=== PATIENT | female | born 1970 | race Caucasian/White ===

== ENCOUNTER 2019-07-16 07:37 | Inpatient (IN) | payer OTHER ==
[~2019-07-16] VITALS: Ht 165.1 cm; Wt 103.4 kg
[2019-07-16] VITALS (33 sets, daily range): BP systolic 102–199; BP diastolic 56–90
--- NOTE | ~2019-07-16 | EMS ---
[place] [address] EMS Patient Care Report Name: MALATHI GERARDO Room: [place] [address] ADM IN [facility]#: [id number] Admission: 07/16/19 Attend Phys: Bon Lozano MD, F Discharge: Date of : 70 Report #: [id number] THIS REPORT FOR: //name// Report Transmitted: 07/16/2019 07:58 EMS Care Summary [facility] [id number] @ 07/16/2019 06:41 Incident Location [address] [place] [address] Patient MALATHI GERARDO Female, 49 Years 1970 Patient Address [address] [place] [address] Patient History Denies, Patient Allergies Penicillin, Patient Medications Denies, Chief Complaint Chest/Neck Pain Disposition Transported Lights/[place] Reason Chest Pain Transported To [facility] Narrative Dispatched: Med 1 was toned for a female who was experiencing chest pain. Chief Complaint/Condition: The pt was found sitting on her couch grabbing her chest with apparent discomfort/distress. She was talking with Officer 405. She [facility] [address] [place] [address] EMS Patient Care Report Name: MALATHI GERARDO Room: 160[address]1 ADM IN [place]enny#: [id number] Admission: 07/16/19 Attend Phys: Bon Lozano MD, F Discharge: Date of : 70 Report #: [id number] complained of chest pain that radiated into her left arm and anterior neck. Pain rated 8:10. History of Present Illness/Injury: The pt stated that she had an onset of chest pain and discomfort yesterday evening that had dissipated. Approximately 6 hours prior to 911 activation, she reported the chest pain returned and stayed consistent. She took ibuprofen with no relief. Pain did not change with movement. The pain increased and she had 911 called when her condition did not improve. Besides nausea, the pt had no other complaints. Assessment: The pt was a female in her 40's, A/Ox4, GCS 15. Airway patent, breathing rate increased and shallow. CMS present with strong radial pulses. Skin pale, cool, and dry. STEMI noted in inferior leads. See section for further. Reason for Ambulance: The pt was experiencing a possible STEMI with symptoms. Pt transported to cardiac center ([place]) per her choice. Treatments: EKG/ 12 lead showing inferior elevation with borderline ST depression in high lateral leads and T wave inversion (septal/anterior) beginning later in the call. 15 lead attempted but unable to fully read due to artifact. Oxygen and aspirin administered per protocol. Fluid bolus given due to lowering blood pressure post narcotics. Fentanyl administered for pain. Zofran administered for nausea. See section for further. Summary: Med 1 arrived on scene to find the pt speaking with Officer 405. Assessment performed, treatments initiated (Aspirin). Possible STEMI noted. Pt escorted to the stretcher and secured/brought to Med 1. Transport initiated immediately (emergent). Further treatments performed en route while history of the event was gathered. Serial 12 leads and 15 leads performed. Report called into [place] with findings/STEMI activation. No further orders given. Upon arrival, Med 1 was met by physician and RN in ambulance bay. Report given with copy of EKG. The pt was brought to room 1 and sheet transferred to bed. Report was given to staff and signatures obtained. The pt's purse was left in the room. Med 1 gathered paperwork, performed clean up of unit, and returned to [facility]. Initial Vitals @07:14Glucose: 322, @06:51P: 60,BP: 190/90,SpO2: 98, @06:5712-Lead Ischemia:Inferior,3-Lead ECG: Sinus Rhythm3-Lead Additional: 5444MI Suspected: true @06:56GCS: 15,3-Lead ECG: Sinus Rhythm3-Lead Additional: 5444 @07:02GCS: 15,3-Lead ECG: Sinus Rhythm3-Lead Additional: 5444MI Suspected: true @06:55GCS: 15,12-Lead Ischemia:Inferior,3-Lead ECG: Sinus Rhythm3-Lead Additional: 5444MI Suspected: [place] [address] EMS Patient Care Report Name: MALATHI GERARDO Room: [place] [address] ADM IN ..#: [id number] Admission: 07/16/19 Attend Phys: Bon Lozano MD, F Discharge: Date of : 70 Report #: [id number] @07:03P: 68,R: 28,BP: 125/102,Pain: 8/10,GCS: 15,SpO2: 100,Revised Trauma: 12,12-Lead Ischemia:Inferior,3-Lead ECG: Sinus Rhythm3-Lead Additional: 5444MI Suspected: true @07:09P: 69,R: 28,GCS: 15,SpO2: 100,3-Lead ECG: Sinus Rhythm3-Lead Additional: 5444 @07:27P: 65,R: 26,BP: 71/47,GCS: 15,EtCO2: 11,SpO2: 100,Revised Trauma: 10,3-Lead ECG: Sinus Rhythm3-Lead Additional: 5444 @07:15P: 65,R: 30,BP: 122/98,Pain: 8/10,GCS: 15,EtCO2: 10,SpO2: 100,Revised Trauma: 11,3-Lead ECG: Sinus Rhythm3-Lead Additional: 5444 @07:35R: 30,GCS: 15,EtCO2: 14,SpO2: 100,12-Lead Ischemia:Inferior,3-Lead ECG: Sinus RhythmMI Suspected: true Assessments @06:49MENTAL:Time Oriented,Person Oriented,Place Oriented,Event Oriented,SKIN:Cold,Pale,HEENT:LUNG SOUNDS:General: Nausea,ABDOMEN:General: Nausea,PELVIS//GI:EXTREMITIES:Left Arm: Abnormal Sensation,PULSE:Radial: 2+ Normal,NEURO:@07:30MENTAL:Time Oriented,Person Oriented,Event Oriented,Place Oriented,SKIN:Pale,Cold,HEENT:LUNG SOUNDS:ABDOMEN:PELVIS//GI:EXTREMITIES:Left Arm: Abnormal Sensation,PULSE:Radial: 2+ Normal,NEURO: Impression Chest Pain / Discomfort Procedures @06:51Aspirin - 324 mg - OralResponse: Unchanged@07:13Saline Lock 10cc (18 ga) Site: Antecubital-LeftResponse: UnchangedSucceeded@07:25Fentanyl - 50 mcg - IntravenousResponse: Improved@07:22Zofran - 4 mg - IntravenousResponse: Unchanged@07:20Oxygen FlowRate: 2 Device: CO2 Nasal Cannula Response: ImprovedSucceeded@07:0912-Lead ECGResponse: UnchangedSucceeded@07:0212-Lead ECGResponse: UnchangedSucceeded@07:0312-Lead ECGResponse: UnchangedSucceeded@06:5512-Lead ECGResponse: UnchangedSucceeded@06:5712-Lead ECGResponse: UnchangedSucceeded@06:5612-Lead ECGResponse: UnchangedSucceeded@07:1515-Lead ECGResponse: UnchangedSucceeded@07:3515-Lead ECGResponse: UnchangedSucceeded@07:33Fentanyl - 50 mcg - IntravenousResponse: Improved@06:49ALS AssessmentResponse: UnchangedSucceeded@07:26Lactated Ringers 300cc () Site: Antecubital-LeftResponse: ImprovedSucceeded Timeline 06:40,Call Received 06:40,Psap Call 06:41,Dispatched 06:43,En Route 06:48,On Scene 06:49,At Patient 06:49,ALS Assessment,Response: UnchangedSucceeded, 06:51,BP: 190/90 M,PULSE: 60,RR: R,SPO2: 98 Ox,ETCO2: ,BG: ,PAIN: ,GCS: , [facility] [address] [place] [address] EMS Patient Care Report Name: MALATHI GERARDO Room: [place] [address] ADM IN M.R.#: [id number] Admission: 07/16/19 Attend Phys: Bon Lozano MD, F Discharge: Date of : 70 Report #: [id number] 06:51,Aspirin - 324 mg - Oral,Response: Unchanged 06:55,12-Lead ECG,Response: UnchangedSucceeded, 06:55,BP: / M,PULSE: ,RR: R,SPO2: Ox,ETCO2: ,BG: ,PAIN: ,GCS: 15, 06:56,12-Lead ECG,Response: UnchangedSucceeded, 06:56,BP: / M,PULSE: ,RR: R,SPO2: Ox,ETCO2: ,BG: ,PAIN: ,GCS: 15, 06:57,12-Lead ECG,Response: UnchangedSucceeded, 06:57,BP: / M,PULSE: ,RR: R,SPO2: Ox,ETCO2: ,BG: ,PAIN: ,GCS: , 07:02,12-Lead ECG,Response: UnchangedSucceeded, 07:02,BP: / M,PULSE: ,RR: R,SPO2: Ox,ETCO2: ,BG: ,PAIN: ,GCS: 15, 07:03,12-Lead ECG,Response: UnchangedSucceeded, 07:03,BP: 125/102 M,PULSE: 68,RR: 28 R,SPO2: 100 Ox,ETCO2: ,BG: ,PAIN: 8,GCS: 15, 07:04,Depart Scene 07:09,12-Lead ECG,Response: UnchangedSucceeded, 07:09,BP: / M,PULSE: 69,RR: 28 R,SPO2: 100 Ox,ETCO2: ,BG: ,PAIN: ,GCS: 15, 07:13,Saline Lock 10cc 18 ga Site: Antecubital-Left,Response: UnchangedSucceeded, 07:14,BP: / M,PULSE: ,RR: R,SPO2: Ox,ETCO2: ,B,PAIN: ,GCS: , 07:15,BP: 122/98 M,PULSE: 65,RR: 30 R,SPO2: 100 Ox,ETCO2: 10 ,BG: ,PAIN: 8,GCS: 15, 07:15,15-Lead ECG,Response: UnchangedSucceeded, 07:20,Oxygen FlowRate: 2 Device: CO2 Nasal Cannula Response: ImprovedSucceeded, 07:22,Zofran - 4 mg - Intravenous,Response: Unchanged 07:25,Fentanyl - 50 mcg - Intravenous,Response: Improved 07:26,Lactated Ringers 300cc Site: Antecubital-Left,Response: ImprovedSucceeded, 07:27,BP: 71/47 M,PULSE: 65,RR: 26 R,SPO2: 100 Ox,ETCO2: 11 ,BG: ,PAIN: ,GCS: 15, 07:33,Fentanyl - 50 mcg - Intravenous,Response: Improved 07:34,At Destination 07:35,BP: / M,PULSE: ,RR: 30 R,SPO2: 100 Ox,ETCO2: 14 ,BG: ,PAIN: ,GCS: 15, 07:35,15-Lead ECG,Response: UnchangedSucceeded, 08:17,Call Closed Disclaimer v1.1 Copyright 2019 [employer] This EMS Care Summary contains data elements from the applicable legal record (which may be displayed differently). It is designed to provide pertinent information for the following purposes: continuity of care, clinical quality, and state data reporting. The complete legal record is available to ED staff and administrators of the receiving hospital in [employer]'s Patient Tracker. All data is provided "as is."
[2019-07-16 08:05] LABS: ABSOLUTE BASOPHILS 0.2 thou/uL (0.0-0.2); ABSOLUTE EOSINOPHILS 0.3 thou/uL (0.0-0.7); ABSOLUTE LYMPHOCYTES 3.2 thou/uL (0.8-5.3); ABSOLUTE MONOCYTES 0.7 thou/uL (0.0-1.2); ABSOLUTE NEUTROPHILS 9.1 thou/uL (1.6-8.1); BASOPHILS 1.1 %; EOSINOPHILS 2.2 %; HEMATOCRIT 41.4 % (37.0-47.0); HEMOGLOBIN 14.3 gm/dL (12.0-15.0); LYMPHOCYTES 23.7 %; MCH 29.8 pg (26.0-34.0); MCHC 34.5 g/dL (28.0-37.0); MCV 86.5 fL (80.0-100.0); MONOCYTES 5.1 %; MPV 9.6 fl. (7.2-11.1); NUCLEATED RBCS 0 /100WBC; PLATELET COUNT* 277 thou/uL (150-400); POLYS 67.9 %; RBC 4.78 mil/uL (4.20-5.00); RDW-CV 13.6 % (10.5-14.5); WBC 13.5 thou/uL (4.0-11.0)
[2019-07-16 08:13] LABS: CALCIUM 9.7 mg/dL (8.5-10.1); CREATININE 0.7 mg/dL (0.6-1.3); INR 0.9; POTASSIUM 3.6 mmol/L (3.5-5.1); PROTIME 9.6 Seconds (9.20-11.50)
[2019-07-16 08:23] LABS: ALBUMIN 3.1 g/dL (3.4-5.0); TOTAL BILIRUBIN 0.3 mg/dL (<0.1-1.0); TOTAL PROTEIN 6.7 g/dL (6.4-8.2); TROPONIN-I LEVEL 0.18 ng/mL (<0.06)
--- NOTE | 2019-07-16 13:52 | CON ---
[address] [address] CONSULTATION Name: HUMAIRAMALATHI Room: [address] IN M.R.#: [id number] Admission: 07/16/19 Attend Phys: Rizwan Viveros Discharge: Date of : 70 Report #: [id number] THIS REPORT FOR: //name// CC: Bon Becerril DATE OF SERVICE: 07/16/2019 INDICATION: Acute inferior wall ST elevation myocardial infarction. HISTORY OF PRESENT ILLNESS: The patient is a 49-year-old white female with no prior cardiac history. She is on no medications. She has no allergies. For the past 2 days, she has had progressive midsternal chest discomfort. This morning approximately 2 a.m., the pain persisted, radiating to the back of the left arm and the throat area. She had associated nausea, vomiting or diaphoresis. EMS was summoned. Initial EKG showed ST elevation in inferior leads. She was transferred here to [facility] with the diagnosis of ST elevation myocardial infarction. The patient was taken urgently to the [facility]. She was found to have a totally occluded mid right coronary artery for which she had percutaneous coronary intervention and stent placement. The patient was also noted to have hemodynamically significant mid LAD stenosis for which she received a second drug-eluting stent. The patient did well with the procedure and had no complication. By review of the labs, it appears that she likely has diabetes and dyslipidemia. She has been started on appropriate medications. PAST MEDICAL HISTORY: 1. x 3. 2. Presumed type 2 diabetes mellitus at this point in time. 3. Presumed hyperlipidemia at this time. 4. Chronic tobacco use. FAMILY HISTORY: The patient's paternal grandmother had heart disease. The patient's mother and grandmother have diabetes. SOCIAL HISTORY: The patient smokes a half a pack of cigarettes daily. She does not drink alcohol. PHYSICAL EXAMINATION: VITAL SIGNS: Blood pressure 138/57, pulse 72. GENERAL: This is a moderately obese, pleasant white female in no distress. Mood and affect appropriate. HEENT: Extraocular muscles intact, xanthelasma noted. [place] [address] CONSULTATION Name: MALATHI GERARDO Room: [address] IN [facility].#: [id number] Admission: 07/16/19 Attend Phys: Rizwan Viveros Discharge: Date of : 70 Report #: [id number] NECK: Shows no jugular venous distention. There are no carotid bruits. CHEST: Reveals clear lung muniz without wheezes or rales. CARDIOVASCULAR: Reveals a regular rhythm without gallop or murmur. ABDOMEN: Reveals normal bowel sounds. The abdomen is soft and nontender. EXTREMITIES: Shows no edema. Peripheral pulses are 2+ and palpable. SKIN: Warm and dry. DIAGNOSTIC DATA: Outside 12-lead EKG shows sinus rhythm with inferior wall ST segment elevation consistent with acute ST segment elevation myocardial infarction. LABORATORY DATA: Labs are reviewed. Sodium 134, potassium 3.6, chloride 99, bicarbonate 20, BUN 10, creatinine 0.7, serum glucose 371. AST 14, total bilirubin 0.3, calcium 9.7, alkaline phosphatase 143, ALT 26, total protein 6.7, albumin 3.1, EGFR 89. Initial troponin was 0.18. Subsequent troponin 2.53. NT-ProBNP 115. Coags are within normal limits. White blood cell count 13.5, hemoglobin 14.3, platelet count 277,000. IMPRESSION AND RECOMMENDATIONS: 1. Acute ST elevation myocardial infarction, status post drug-eluting stent placement to the infarct-related vessel, the right coronary artery as well as a drug-eluting stent placement to the mid left anterior descending coronary artery. The patient has been placed on dual antiplatelet therapy consisting of Plavix 75 mg daily and aspirin 81 mg daily. Would continue for 1 year uninterrupted. 2. Hyperlipidemia presumed. Lipid profile pending. Atorvastatin 40 mg daily started. 3. Diabetes per hospitalist. 4. Tobacco abuse, cessation discussed at length and advised. <ELECTRONICALLY SIGNED> By: Brandon Vilchis MD, FACC 07/16/19 1352 1212 [id number] Vilchis MD, FACC /nt
--- NOTE | 2019-07-16 16:16 | EKG ---
[place] [address] ELECTROCARDIOGRAM REPORT Name: MALATHI GERARDO Room: [address] ADM IN M.R.#: [id number] Admission: 07/16/19 Attend Phys: Rizwan Viveros Discharge: Date of : 70 Report #: [id number] THIS REPORT FOR: //name// [facility] ED Test Date: 2019-07-16 Test Time: 07:39:15 Pat Name: MALATHI GERARDO Department: Room: [facility] Gender: F Facing End Trimmer: EV : 1970 Requested By: Ena Lloyd Order Number: [id number] MD: Brandon Vilchis Measurements Intervals [place] Rate: 62 P: 32 [place]: 132 QRS: 9 QRSD: 87 T: 81 QT: 399 QTc: 406 Interpretive Statements Sinus rhythm Inferior infarct, acute (RCA) Probable RV involvement, suggest recording right precordial leads No previous ECG available for comparison Electronically Signed On 07-16-2019 16:16:04 CDT by Brandon Vilchis [email or web address] <ELECTRONICALLY SIGNED> By: Brandon Vilchis MD, [facility] 07/16/19 1616 0739 0739 Brandon Vilchis MD, [facility] /EPI
--- NOTE | 2019-07-16 16:17 | EKG ---
[place] [address] ELECTROCARDIOGRAM REPORT Name: MALATHI GERARDO Room: [address] ADM IN M.R.#: [id number] Admission: 07/16/19 Attend Phys: Rizwan Viveros Discharge: Date of : 70 Report #: [id number] THIS REPORT FOR: //name// [facility] Test Date: 2019-07-16 Test Time: 09:57:56 Pat Name: MALATHI GERARDO Department: Room: [address] Gender: F Telecommunications Clerk: : 1970 Requested By: Bon Lozano Order Number: [id number] MD: Brandon Vilchis Measurements Intervals [place] Rate: 76 P: 46 OR: 166 QRS: 12 QRSD: 90 T: 52 QT: 401 QTc: 451 Interpretive Statements Sinus rhythm Inferior infarct, age indeterminate Minimal ST depression, lateral leads Minimal ST elevation, inferior leads No previous ECG available for comparison Electronically Signed On 07-16-2019 16:17:13 CDT by Brandon Vilchis [email or web address] <ELECTRONICALLY SIGNED> By: Brandon Vilchis MD, [facility] 07/16/19 1617 0957 0957 Brandon Vilchis MD, [facility] /EPI
--- NOTE | 2019-07-16 16:49 | CARD ---
[address] [address] CARDIAC CATH REPORT Name: MALATHI GERARDO Room: [address] IN .R.#: [id number] Admission: 07/16/19 Attend Phys: Rizwan mcintyre Raul Discharge: Date of : 70 Report #: [id number] THIS REPORT FOR: //name// APPROVED REPORT Study performed: 07/16/2019 07:31:01 Patient Details Patient Status: In-Patient Room #: The patient is a 49 year-old female Event Personnel Bon Lozano Choker Setter, Batool Zarco RN Honey Blender, Iván Barreto (R) Monitor, Vivien Vance RTR Scrub Procedures Performed BMS Place w/wo Plasty Single LAD ,BMS Place w/wo Plasty Single RCA Indication STEMI , Chest pain Risk Factors Hypercholesterolemia, Diabetes Tobacco History () Admission/Lab Medications/Medications given during procedure Glycoprotein IllbIlla Inhibitors, Heparin Unfract. Procedure Narrative The patient was brought emergently to the Cardiac Catheterization Laboratory and was prepped and draped in a sterile manner. The right femoral was infiltrated with 1% Lidocaine subcutaneous anesthesia. A 6fr Ultimum Sheath sheath was inserted into the right femoral artery. Coronary angiography was performed using coronary diagnostic catheters. The right coronary system was accessed and visualized with a Diagnostic JR4 catheter. The left coronary system was accessed and visualized with a Diagnostic JL4 catheter. The left ventricle was accessed and visualized with a Diagnostic Straight Pigtail catheter. Left ventricular/Aortic Valve gradient assessed via catheter pullback. Left ventriculogram was performed in ZAVALA projection. Closure device was deployed with a 6 Fr Angioseal STS 6Fr. The patient tolerated the procedure well and there were no complications associated with the procedure. [place] [address] CARDIAC CATH REPORT Name: MALATHI GERARDO Room: [address] IN [facility].#: [id number] Admission: 07/16/19 Attend Phys: Rizwan Viveros Discharge: Date of : 70 Report #: [id number] Intraoperative Conscious Sedation No Sedation Given Fluoro Time: 11.2 minutes Dose: DAP 644893 cGycm2 2452 mGy Coronary Angiography The patient's coronary anatomy is co- dominant. Diagnostic Cath Left Main Short and normal. LAD Mildly plaqued proximally. 90% stenosed in the midportion. The distal vessel is free of significant disease. Diagonal 1 50% narrowed proximally. Circumflex Moderate plaque approximately 50% in the midportion. OM1 Margin branched and minimally plaqued. OM2 Small in caliber free of significant disease. OM3 50% narrowed in the midportion. Right Coronary Totally occluded acutely in the midportion. R PDA Visualized post intervention. No significant coronary disease. RPLV Visualized post intervention. Small in caliber without significant stenoses. Left Ventriculography The left ventricle is normal in size with preserved contractility. The left ventricular ejection fraction is estimated to be 45-50%. Left ventricular wall motion abnormalities are present. There is no mitral insufficiency. mild inferior wall hypokinesis Hemodynamics The aortic pressure is 161/70 mmHg with a mean of 103 mmHg. The left ventricular pressure is 128/10 mmHg with a mean of mmHg. The left ventricular end diastolic pressure is 20 mmHg. There was no gradient across the aortic valve upon pullback. Pullback from the left ventricle to the aorta revealed no gradient across the aortic valve. PCI Technique Lesion Anticoagulation was achieved with Heparin. bolus of iv aggrastat given Percutaneous coronary intervention was performed on the mid right coronary artery. The lesion stenosis prior to intervention was 100% with CARL 0 flow. A 6FR JCR 4 100CM Guide Catheter was used to engage the rca ostium. A IG: BMW 190cm [place] [address] CARDIAC CATH REPORT Name: MALATHI GERARDO Room: [address] IN [facility]#: [id number] Admission: 07/16/19 Attend Phys: Rizwan Viveros Discharge: Date of : 70 Report #: [id number] used to cross the lesion. BALLOON DILATION A Balloon catheter Trek RX 2.5 X 8 was inserted and inflated up to 8.00atm for 12seconds. Repeat angiography revealed the following post-dilatation results: 50% stenosis. STENT DEPLOYMENT A bare metal stent CATH MINI VISION RX 2.5 X 15 was inserted and inflated up to 8.00atm for 12seconds. Repeat angiography revealed the following post-stent deployment results: 0% stenosis. Additional Inflation: 13.00atm for 18seconds. Additional Inflation: 14.00atm for 12seconds. Final angiography reveals 0 % stenosis with CARL 3 flow. PCI Technique Lesion 2 Percutaneous Coronary Intervention was performed on the mid left anterior descending artery segment. Percutaneous coronary intervention was performed on the mid left anterior descending artery segment. The lesion stenosis prior to intervention was 90% with CARL 3 flow. A 6F XB LAD 3.5 Guide Catheter was used to engage the lm ostium. A IG: BMW 190cm Interventional Guidewire was used to cross the lesion. Balloon Dilation A Balloon catheter Trek RX 2.5 X 8 was inserted and inflated up to 10.00atm for 19seconds. Repeat angiography revealed the following post-dilatation results: 50% stenosis. Stent Deployment A bare metal stent Mini Vision RX 2.5 X 12 was inserted and inflated up to 12.00atm for 18seconds. Repeat angiography revealed the following post-stent deployment results: 0% stenosis. Additional Inflation: 13.00atm for 15seconds. Final angiography reveals 0 % stenosis with CARL 3 flow. Conclusion A. acutely occluded mid right coronary artery. B. high-grade mid LAD stenosis. C. moderate diffuse coronary artery disease in the remaining vessels. D. elevated left ventricular end-diastolic pressure consistent with acute diastolic heart failure. [address] [place] [address] CARDIAC CATH REPORT Name: MALATHI GERARDO Room: [address] IN M.R.#: [id number] Admission: 07/16/19 Attend Phys: Rizwan Viveros Discharge: Date of : 70 Report #: [id number] 1. acute inferior STEMI with 100% occlusion of the mid rca 2. 90% stenosis of the mid lad 3. LVEF 45-50% 4. successful placement of bare metal stents in the mid rca and lad Recommendations Smoking Cessation A. aggressive risk factor modification. B. percutaneous coronary intervention to the acutely occluded right coronary artery and mid LAD. Medications Administered Clopidogrel <ELECTRONICALLY SIGNED> By: Brandon Vilchis MD, FACC 07/16/19 1649 48 48Miclupillo Vilchis MD, FACC /INF
[2019-07-16 20:38] LABS: AMP/METHAMP Negative (Negative); BARBITURATES Negative (Negative); BENZODIAZEPINES Negative (Negative); COCAINE Negative (Negative); METHADONE Negative (Negative); OPIATES POSITIVE (Negative); PCP Negative (Negative); THC Negative (Negative)
[2019-07-17] VITALS (20 sets, daily range): BP systolic 97–145; BP diastolic 46–84
[2019-07-17 04:07] LABS: HEMATOCRIT 39.4 % (37.0-47.0); HEMOGLOBIN 13.2 gm/dL (12.0-15.0); MCH 29.3 pg (26.0-34.0); MCHC 33.5 g/dL (28.0-37.0); MCV 87.4 fL (80.0-100.0); MPV 9.7 fl. (7.2-11.1); RBC 4.51 mil/uL (4.20-5.00); RDW-CV 13.7 % (10.5-14.5); WBC 14.4 thou/uL (4.0-11.0)
[2019-07-17 04:21] LABS: BUN 7 mg/dL (7-18); CALCIUM 9.1 mg/dL (8.5-10.1); CHLORIDE 106 mmol/L (98-107); CHOLESTEROL 227 mg/dL (<200); CO2 28 mmol/L (21-32); CREATININE 0.6 mg/dL (0.6-1.3); GLUCOSE 169 mg/dL (70-99); HDL CHOLESTEROL 30 mg/dL (>40); LDL CHOLESTEROL 163 mg/dL (<100); POTASSIUM 4.2 mmol/L (3.5-5.1); TC:HDL 7.6 Ratio (Not establshd); TRIGLYCERIDE 170 mg/dL (<150); VLDL 34 mg/dL (<40)
[2019-07-17 04:29] LABS: ANION GAP 8 mmol/L (7-16); SODIUM 142 mmol/L (136-145)
[2019-07-17 04:31] LABS: TROPONIN-I LEVEL 4.58 ng/mL (<0.06)
[2019-07-17 04:32] LABS: SERUM ASSESSMENT CLEAR
--- NOTE | 2019-07-17 10:09 | EKG ---
[place] [address] ELECTROCARDIOGRAM REPORT Name: MALATHI GERARDO Room: [address] ADM IN M.R.#: [id number] Admission: 07/16/19 Attend Phys: Brandon Vilchis MD Discharge: Date of : 70 Report #: [id number] THIS REPORT FOR: //name// [facility] Test Date: 2019-07-17 Test Time: 08:42:47 Pat Name: MALATHI GERARDO Department: Room: [address] Gender: F Blindstitch Hemmer: RT : 1970 Requested By: Bon Lozano Order Number: [id number] Reading MD: Bon Lozano Measurements Intervals [place] Rate: 69 P: 14 [place]: 144 QRS: -25 QRSD: 85 T: -6 QT: 433 QTc: 464 Interpretive Statements Sinus rhythm LVH by voltage Inferior infarct, age indeterminate Compared to ECG 07/16/2019 09:57:56 Left ventricular hypertrophy now present ST (T wave) deviation no longer present Myocardial infarct finding still present Electronically Signed On 07-17-2019 10:09:38 CDT by Bon Lozano [email or web address] <ELECTRONICALLY SIGNED> By: Bon Lozano MD, [facility] 07/17/19 1009 0842 0842 Bon Lozano MD, [facility] /EPI
[2019-07-17] MEDS ORDERED: LIPITOR40 MG PO (14:23)
[2019-07-17] MEDS ORDERED: HYDROCODON-ACE1 EAC7 PO (14:23)
[2019-07-17] MEDS ORDERED: ASPIR 8181 MG PO (14:23)
[2019-07-17] MEDS ORDERED: COZAAR 50 MG TA50 M1 PO (14:23)
[2019-07-17] MEDS ORDERED: PLAVIX 75 MG TA75 M1 PO (14:23)
[2019-07-17] MEDS ORDERED: PEPCID20 MG PO (14:23)
[2019-07-17] MEDS ORDERED: LOPRESSOR25 PO (14:23)
[2019-07-17] MEDS ORDERED: NITROGLYCERIN0.4 MG SUBLING (14:23)
[2019-07-18 02:06] LABS: GLYCOHEMOGLOBIN (HGB A1C) 11.3 % (4.8-5.6)
== END 2019-07-17 15:46 | disposition home or self-care (01) | DRG 247 ==
LOC: M.ERS 07:37 → M.CL 07:37 → M.ICU 07:51 → M.CL 07:51 → M.TBA-CV 07:51 → M.ICU 09:47
PROVIDERS: Family Medicine; Internal Medicine Cardiovascular Disease; Personal Emergency Response Attendant; ADMIT Internal Medicine Cardiovascular Disease
PROC: B2151ZZ Fluoroscopy of Left Heart using Low Osmolar Contrast (ICD-10-PCS; principal; 2019-07-16)
PROC: 4A023N7 Measurement of Cardiac Sampling and Pressure, Left Heart, Percutaneous Approach (ICD-10-PCS; principal; 2019-07-16)
PROC: 027135Z Dilation of Coronary Artery, Two Arteries with Two Drug-eluting Intraluminal Devices, Percutaneous Approach (ICD-10-PCS; principal; 2019-07-16)
PROC: B2111ZZ Fluoroscopy of Multiple Coronary Arteries using Low Osmolar Contrast (ICD-10-PCS; principal; 2019-07-16)
DX: I21.3 ST elevation (STEMI) myocardial infarction of unspecified site (principal); E66.01 Morbid (severe) obesity due to excess calories; E11.65 Type 2 diabetes mellitus with hyperglycemia; E78.5 Hyperlipidemia, unspecified; Z82.49 Family history of ischemic heart disease and other diseases of the circulatory system; Z71.6 Tobacco abuse counseling; Z88.0 Allergy status to penicillin; Z68.37 Body mass index [BMI] 37.0-37.9, adult; Z79.899 Other long term (current) drug therapy

== ENCOUNTER 2019-08-21 14:23 | Inpatient (IN) | payer OTHER ==
[~2019-08-21] VITALS: Ht 162.6 cm; Wt 95.3 kg
[2019-08-21] VITALS (12 sets, daily range): BP systolic 124–195; BP diastolic 72–96
[~2019-08-21 14:23] MED LIST: ASPIR 8181 MG PO; COZAAR 50 MG TA50 M1 PO; HYDROCODON-ACE1 EAC7 PO; LIPITOR40 MG PO; LOPRESSOR25 PO; NITROGLYCERIN0.4 MG SUBLING; PEPCID20 MG PO; PLAVIX 75 MG TA75 M1 PO
[2019-08-21 14:48] LABS: ABSOLUTE BASOPHILS 0.1 thou/uL (0.0-0.2); ABSOLUTE EOSINOPHILS 0.4 thou/uL (0.0-0.7); ABSOLUTE LYMPHOCYTES 2.6 thou/uL (0.8-5.3); ABSOLUTE MONOCYTES 0.8 thou/uL (0.0-1.2); ABSOLUTE NEUTROPHILS 8.5 thou/uL (1.6-8.1); BASOPHILS 0.7 %; EOSINOPHILS 2.9 %; HEMATOCRIT 39.6 % (37.0-47.0); HEMOGLOBIN 13.5 gm/dL (12.0-15.0); LYMPHOCYTES 20.8 %; MCH 29.7 pg (26.0-34.0); MCHC 34.1 g/dL (28.0-37.0); MCV 87.1 fL (80.0-100.0); MONOCYTES 6.5 %; MPV 8.9 fl. (7.2-11.1); NUCLEATED RBCS 0 /100WBC; PLATELET COUNT* 326 thou/uL (150-400); POLYS 69.1 %; RBC 4.55 mil/uL (4.20-5.00); RDW-CV 13.9 % (10.5-14.5); WBC 12.3 thou/uL (4.0-11.0)
[2019-08-21 14:58] LABS: PROTIME 9.8 Seconds (9.20-11.50)
[2019-08-21 14:59] LABS: CREATININE 0.8 mg/dL (0.6-1.3); POTASSIUM 3.7 mmol/L (3.5-5.1)
[2019-08-21 15:09] LABS: ALBUMIN 3.4 g/dL (3.4-5.0); TOTAL BILIRUBIN 0.3 mg/dL (<0.1-1.0); TOTAL PROTEIN 7.7 g/dL (6.4-8.2)
[2019-08-21 16:16] LABS: CHOLESTEROL 154 mg/dL (<200); HDL CHOLESTEROL 34 mg/dL (>40); LDL CHOLESTEROL 86 mg/dL (<100); TC:HDL 4.5 Ratio (Not establshd); TRIGLYCERIDE 171 mg/dL (<150); VLDL 34 mg/dL (<40)
[2019-08-21 16:19] LABS: SERUM ASSESSMENT Clear
[2019-08-22] VITALS: BP 144/86
[2019-08-22 04:00] VITALS: BP 121/79
[2019-08-22 05:10] LABS: HEMATOCRIT 34.2 % (37.0-47.0); HEMOGLOBIN 11.9 gm/dL (12.0-15.0); MCH 30.1 pg (26.0-34.0); MCHC 34.8 g/dL (28.0-37.0); MCV 86.7 fL (80.0-100.0); MPV 9.3 fl. (7.2-11.1); RBC 3.95 mil/uL (4.20-5.00); RDW-CV 13.7 % (10.5-14.5); WBC 13.1 thou/uL (4.0-11.0)
[2019-08-22 05:19] LABS: ALBUMIN 2.8 g/dL (3.4-5.0); CALCIUM 8.5 mg/dL (8.5-10.1); CREATININE 0.6 mg/dL (0.6-1.3); POTASSIUM 3.1 mmol/L (3.5-5.1); TOTAL BILIRUBIN 0.4 mg/dL (<0.1-1.0); TOTAL PROTEIN 6.4 g/dL (6.4-8.2)
[2019-08-22 05:30] LABS: TROPONIN-I LEVEL 2.84 ng/mL (<0.06)
[2019-08-22 08:00] VITALS: BP 119/74
[2019-08-22 12:26] VITALS: BP 117/72
[2019-08-22] MEDS ORDERED: EFFIENT10 MG PO (12:27)
[2019-08-22 16:32] VITALS: BP 114/70
[2019-08-22 20:00] VITALS: BP 131/77
[2019-08-23] VITALS: BP 103/59
[2019-08-23 04:00] VITALS: BP 106/68
[2019-08-23 04:58] LABS: HEMATOCRIT 38.9 % (37.0-47.0); HEMOGLOBIN 13.1 gm/dL (12.0-15.0); MCH 29.4 pg (26.0-34.0); MCHC 33.7 g/dL (28.0-37.0); MCV 87.3 fL (80.0-100.0); MPV 9.2 fl. (7.2-11.1); RBC 4.45 mil/uL (4.20-5.00); RDW-CV 14.1 % (10.5-14.5); WBC 10.6 thou/uL (4.0-11.0)
[2019-08-23 05:17] LABS: CALCIUM 8.8 mg/dL (8.5-10.1); CREATININE 0.8 mg/dL (0.6-1.3)
[2019-08-23 08:00] VITALS: BP 125/69
[2019-08-23 11:09] VITALS: BP 125/69
--- NOTE | 2019-08-23 14:25 | EKG ---
[place] [address] ELECTROCARDIOGRAM REPORT Name: CARIE GERARDONIFER Room: [address] DIS IN M.R.#: [id number] Admission: 08/21/19 Attend Phys: Julio C Valentine Discharge: 08/23/19 Date of : 70 Report #: [id number] THIS REPORT FOR: //name// [facility] ED Test Date: 2019-08-21 Test Time: 14:28:23 Pat Name: MALATHI GERARDO Department: Room: [facility] Gender: F Food Consultant: : 1970 Requested By: Ena Lloyd Order Number: [id number] MD: Brandon Vilchis Measurements Intervals [place] Rate: 68 P: 12 [place]: 148 QRS: -4 QRSD: 89 T: 102 QT: 380 QTc: 405 Interpretive Statements Sinus rhythm Abnormal R-wave progression, early transition Repol abnrm suggests ischemia, lateral leads Baseline wander in lead(s) II,III,aVF Compared to ECG 07/17/2019 08:42:47 Early repolarization now present Possible ischemia now present Left ventricular hypertrophy no longer present Myocardial infarct finding no longer present Electronically Signed On 08-23-2019 14:25:30 SECURITY SYSTEMS SPECIALIST by Brandon Vilchis [email or web address] <ELECTRONICALLY SIGNED> By: Brandon Vilchis MD, [facility] 08/23/19 1425 1428 1428 Brandon Vilchis MD, [facility] /EPI
--- NOTE | 2019-08-24 12:03 | EKG ---
[place] [address] ELECTROCARDIOGRAM REPORT Name: CARIE GERARDONIFER Room: [address] DIS IN M.R.#: [id number] Admission: 08/21/19 Attend Phys: Julio C Valentine Discharge: 08/23/19 Date of : 70 Report #: [id number] THIS REPORT FOR: //name// [facility] Test Date: 2019-08-22 Test Time: 04:36:33 Pat Name: MALATHI GERARDO Department: Room: [facility] Gender: F Paper Sorter: CHUCKY : 1970 Requested By: Jay Baldwin Order Number: [id number] MD: Jay Baldwin Measurements Intervals [place] Rate: 70 P: 43 DC: 152 QRS: -7 QRSD: 100 T: -57 QT: 463 QTc: 500 Interpretive Statements Sinus rhythm Abnrm T, probable ischemia, anterolateral lds Compared to ECG 08/21/2019 14:28:23 Early repolarization no longer present Possible ischemia still present Electronically Signed On 08-24-2019 12:03:09 DESKTOP OPERATOR by Jay Baldwin [email or web address] <ELECTRONICALLY SIGNED> By: Jay Baldwin MD, FAC 08/24/19 1203 0436 0436 Jay Baldwin MD, [facility] /EPI
--- NOTE | 2019-08-24 14:49 | D ---
[address] [address] DISCHARGE SUMMARY Name: HUMAIRAMALATHI Room: [address] IN M.R.#: [id number] Admission: 08/21/19 Attend Phys: Julio C Valentine Discharge: 08/23/19 Date of : 70 Report #: [id number] THIS REPORT FOR: //name// CC: [place] FINAL DISCHARGE DIAGNOSES: 1. Non-ST segment elevation myocardial infarction. 2. Status post recent inferior wall myocardial infarction. 3. Coronary artery disease. 4. Hypertension. 5. Hyperlipidemia. 6. Diabetes. 7. Status post percutaneous coronary intervention with deployment of drug-eluting stents in the proximal-mid left anterior descending with atherectomy and stenting of the distal left anterior descending and with stenting of the first marginal branch, status post prior stenting of the right coronary artery. HOSPITAL COURSE: The patient is a 49-year-old female who presented several weeks ago with acute inferior infarction and underwent stenting of the right coronary artery. She also underwent stenting of the distal LAD. She presented on 08/21 to the ER with persistent chest discomfort that had been present for 2-3 hours and in this setting with EKG changes suggesting ischemia or injury, she underwent recatheterization. This revealed 95% LAD stenosis just after the first diagonal and first septal game engineer with tandem 90% LAD stenosis and 75% in-stent restenosis of the previously deployed bare-metal stent in the distal LAD. She had 80% ostial right coronary narrowing with a widely patent mid right coronary stent. In this setting, I performed a complex intervention with atherectomy and stenting of the distal LAD, a drug-eluting stent deployed; angioplasty with stenting of the proximal-mid LAD with a drug-eluting stent deployed; and 2 drug-eluting stents deployed in the first diagonal branch, which revealed tandem 90% proximal and mid vessel stenosis. There were 0% residual narrowings of the proximal-mid LAD, mid to distal LAD and first diagonal following the aforementioned procedure. Troponin then urvashi to a peak value of 2.84 in the context of the non-ST segment elevation myocardial infarction with thrombus noted in the 95% proximal-mid LAD stenosis prior to the intervention. She had no recurrent chest pain post-procedurally and there was good hemostasis at the right femoral site of catheterization. LABORATORY DATA: On 08/22, revealed a hemoglobin of 11.9; white blood cell count 13,100; platelets 263,000. Sodium 140, potassium 3.1 with repletion given, BUN 8, creatinine 0.6, glucose 125 mg%. [place] [address] DISCHARGE SUMMARY Name: MALATHI GERARDO Room: [address] IN ..#: [id number] Admission: 08/21/19 Attend Phys: Julio C Valentine Discharge: 08/23/19 Date of : 70 Report #: [id number] The patient was placed on dual antiplatelet therapy with a change to prasugrel in that she will be on aspirin 81 mg daily, prasugrel 10 mg daily, Lipitor 40 mg daily, losartan 25 mg daily, metoprolol 25 mg b.i.d. We will plan to see the patient in followup with our nurse practitioner in 7-10 days following discharge. Therefore, the patient is to be discharged to home in stable condition after the aforementioned intervention with a followup as iterated above. <ELECTRONICALLY SIGNED> By: Jay Baldwin MD, [facility] 08/24/19 1449 1027 1209Joradha Baldwin MD, FAC /nt
--- NOTE | 2019-09-01 11:02 | CARD ---
[address] [address] CARDIAC CATH REPORT Name: MALATHI GERARDO Room: [address] IN ..#: [id number] Admission: 08/21/19 Attend Phys: Julio C Valentine Discharge: 08/23/19 Date of : 70 Report #: [id number] THIS REPORT FOR: //name// ADDENDUM APPROVED REPORT Study performed: 08/21/2019 15:25:45 Patient Details Patient Status: ED Room #: The patient is a 49 year-old female Event Personnel Jay Baldwin Automatic Drill Operator, Batool Zarco RN Monitor, Melissa Reynoso RN Onsite Case Manager, Osmin Adams Scrub, Christine Roland Monitor Procedures Performed Art Access - R femoral artery* Coronary Angiography Only Atherectomy w/wo Plasty Sgl LAD Atherectomy w/wo Plasty Sgl LAD Hemostasis w/ Angioseal Indication Non-STEMI Risk Factors Hypercholesterolemia, Hypertension Previous Procedures/Diagnoses Previous PCI Admission/Lab Medications/Medications given during procedure Aspirin, Thrombin Inhibitors, Platelet Aff. Inhib., Effient PO 60 mg, Aspirin PO 162 mg, Angiomax IV 15 ml Procedure Narrative The patient was brought electively to the Cardiac Catheterization Laboratory and was prepped and draped in a sterile manner. The right femoral was infiltrated with 2% Lidocaine subcutaneous anesthesia. A 6fr Sheath sheath was inserted into the right femoral artery. Coronary angiography was performed using coronary diagnostic catheters. The right coronary system was accessed and visualized with a Diagnostic JR4 catheter. The left coronary system was accessed and visualized with a Diagnostic JL4 catheter. Pre-demployment femoral angiogram was performed . Closure device was deployed with a 6 Fr Angioseal. The patient tolerated the procedure well and there were no [facility] [address] [place] [address] CARDIAC CATH REPORT Name: HAZEL GERARDOFER Room: [address]#: [id number] Admission: 08/21/19 Attend Phys: Julio C Valentine Discharge: 08/23/19 Date of : 70 Report #: [id number] complications associated with the procedure. There was no hematoma. Intraoperative Conscious Sedation Sedation start time: 4:29 Case end Time: 6:29 Fentanyl 100.0 mcg Versed 5 mg Fluoro Time: 39.2 minutes Dose: 3940 mGy Contrast Type and Amount: Visipaque 480 ml Diagnostic Cath Left Main 0% narrowing LAD 95% mid LAD stenosis with local thrombus at the Site; there were tandem 90% First Diagonal Stenoses Circumflex 50% mid vessel narrowing Right Coronary 80% ostial narrowing with 40% proximal and mid right coronary stenosis Left Ventriculography Left Ventriculography was not performed. After reviewing the contrast ventriculogram of June 2019 which revealed an ejection fraction of 65%, I elected not to proceed with repeat contrast ventriculography on the study of 08/21/19. IVUS Fractional Flow Rufe was performed on the 75 vessel. A 3 Guide Catheter was used to engage the ostium. Hemodynamics The aortic pressure is 157/73 mmHg with a mean of 108 mmHg. PCI Technique Lesion Anticoagulation was achieved with Angiomax. Percutaneous coronary intervention was performed on the mid left anterior descending artery segment. The lesion stenosis prior to intervention was 75% with CARL 3 flow. A 6FR XB LAD 3.0 100CM Guide Catheter was used to engage the ostium. A IG: ProwaterFlex 180CM Interventional Guidewire was used to cross the lesion. BALLOON DILATION A Balloon catheter Trek RX 2.25 X 12.2.5x10 angiosculpt was inserted and inflated up to 8atm for 6seconds. Additional Inflation: 14.00atm for 14seconds. Additional Inflation: 18.00atm [place] 12[place]. [place] [address] CARDIAC CATH REPORT Name: MALATHI GERARDO Room: [address]#: [id number] Admission: 08/21/19 Attend Phys: Julio C Valentine Discharge: 08/23/19 Date of : 70 Report #: [id number] STENT DEPLOYMENT A drug-eluting stent osirus 2.5x30, 2.0x9 orsiro was inserted and inflated up to 9.00atm for 12seconds. Additional Inflation: 10.00atm for 10seconds. Additional Inflation: 10.00atm for 7seconds. Final angiography reveals 0 % stenosis with CARL 3 flow. PCI Technique Lesion The lesion stenosis prior to intervention was 75% with CARL 3 flow. BALLOON DILATION A Balloon catheter was inserted and inflated up to 9.00atm for 12seconds. Additional Inflation: 8.00atm for 15seconds. Additional Inflation: 9.00atm for 20seconds. STENT DEPLOYMENT A drug-eluting stent OSIRUS 2.5X30 was inserted and inflated up to 9.00atm for 5seconds. Additional Inflation: 10.00atm for 7seconds. Additional Inflation: 11.00atm for 7seconds. a Second Drug eluting stent Osirus 2.5x9 was inserted distal to the previous stent and inflated up to 9 chelsey for 10 sec. Final angiography reveals 0 % stenosis with CARL 3 flow. PCI Technique Lesion 2 Percutaneous Coronary Intervention was performed on the first diagnonal branch segment. The lesion stenosis prior to intervention was 90% with CARL 3 flow. A IG: BMW 190cm Interventional Guidewire was used to cross the lesion. Balloon Dilation A Balloon catheter Mini Trek RX 2.0 X 8 was inserted and inflated up to 12.00atm for 8seconds. Additional Inflation: 18.00atm for 6seconds. Stent Deployment A drug-eluting stent Marco RX Stent 2.25X8mm, 2.0x12 was inserted and inflated up to 10.00atm for 8seconds. Additional Inflation: 10.00atm for 5seconds. Final angiography reveals 0 % stenosis with CARL 3 flow. STENT DEPLOYMENT A drug-eluting stent Marco RX Stent 2.0X12mm was inserted and inflated up to 10.00atm for 7seconds. Additional Inflation: 11.00[place] [address] CARDIAC CATH REPORT Name: MALATHI GERARDO Room: [address] IN M.Bennie.#: [id number] Admission: 08/21/19 Attend Phys: Julio C Valentine Discharge: 08/23/19 Date of : 70 Report #: [id number] 7seconds. PCI Technique Lesion 3 Percutaneous Coronary Intervention was performed on the proximal left anterior descending artery segment. The lesion stenosis prior to intervention was 95% with CARL 2 flow. Balloon Dilation A Balloon catheter 2.25 x 12 mm trek was inserted and inflated up to 18atm for 15seconds. Stent Deployment A drug-eluting stent 2.5x35 orsiro was inserted and inflated up to 12atm for 15seconds. Post Stent Deployment Balloon Dilation A Balloon catheter NC Trek RX 2.75 X 12 was inserted and inflated up to 12-18atm for 15seconds. Final angiography reveals 0 % stenosis with CARL 3 flow. Conclusion #1 significant multivessel coronary disease characterized by the following: A 95% proximalmid LAD stenosis with local thrombus at the site with 75% mid to distal LAD in-stent restenosis and tandem 90% first diagonal stenosis B 50% narrowing of the midportion of the codominant circumflex C 80% ostial right coronary narrowing, this being a codominant vessel with tandem 40% proximal and mid vessel narrowings #2 mild systemic systolic hypertension #3 successful atherotomy/atherectomy with stenting of the mid to distal LAD in-stent restenotic segment with 0% residual narrowing #4 successful angioplasty with stenting of the proximalmid LAD with 0% residual narrowing #5 successful angioplasty with stenting of the tandem 90% first diagonal stenosis with 0% [place] [address] CARDIAC CATH REPORT Name: MALATHI GERARDO Room: [address] IN [facility].#: [id number] Admission: 08/21/19 Attend Phys: Julio C Valentine Discharge: 08/23/19 Date of : 70 Report #: [id number] Recommendations Cardiac Risk Reduction Program Aggressive Medical Therapy Medications Administered Aspirin (any) Prasugrel Diagnostic Cath Approved by: Jay Baldwin MD Date/Time: 08/22/2019 10:55:53 <ELECTRONICALLY SIGNED> By: Jay Baldwin MD, FACC 09/01/191101 01 01Jay Baldwin MD, FACC /INF
== END 2019-08-23 11:35 | disposition still patient (30) | DRG 246 ==
LOC: M.ERS 14:23 → M.TBA-ER 15:27 → M.ERS 15:27 → M.TBA-CV 16:05 → M.2W 18:56
PROVIDERS: Internal Medicine; Personal Emergency Response Attendant; Registered Nurse; ADMIT Internal Medicine
PROC: B41FYZZ Fluoroscopy of Right Lower Extremity Arteries using Other Contrast (ICD-10-PCS; principal; 2019-08-21)
PROC: 4A023N7 Measurement of Cardiac Sampling and Pressure, Left Heart, Percutaneous Approach (ICD-10-PCS; principal; 2019-08-21)
PROC: 027137Z Dilation of Coronary Artery, Two Arteries with Four or More Drug-eluting Intraluminal Devices, Percutaneous Approach (ICD-10-PCS; principal; 2019-08-21)
PROC: B211YZZ Fluoroscopy of Multiple Coronary Arteries using Other Contrast (ICD-10-PCS; principal; 2019-08-21)
PROC: B215YZZ Fluoroscopy of Left Heart using Other Contrast (ICD-10-PCS; principal; 2019-08-21)
DX: I21.4 Non-ST elevation (NSTEMI) myocardial infarction (principal); E11.9 Type 2 diabetes mellitus without complications; I25.110 Atherosclerotic heart disease of native coronary artery with unstable angina pectoris; E78.5 Hyperlipidemia, unspecified; I10 Essential (primary) hypertension; Z95.5 Presence of coronary angioplasty implant and graft; Z88.0 Allergy status to penicillin; Z79.82 Long term (current) use of aspirin; Z79.899 Other long term (current) drug therapy; Z82.49 Family history of ischemic heart disease and other diseases of the circulatory system; Z28.21 Immunization not carried out because of patient refusal

== ENCOUNTER 2020-12-12 10:33 | Inpatient (IN) | payer OTHER ==
[~2020-12-12] VITALS: Ht 162.6 cm; Wt 103.9 kg
[~2020-12-12 10:33] MED LIST changes: +EFFIENT10 MG PO
[2020-12-12 10:36] VITALS: BP 176/89
[2020-12-12] MEDS ORDERED: PROZAC20 M1 PO (10:39)
[2020-12-12 11:14] LABS: ABSOLUTE BASOPHILS 0.1 thou/uL (0.0-0.2); ABSOLUTE EOSINOPHILS 0.3 thou/uL (0.0-0.7); ABSOLUTE LYMPHOCYTES 2.7 thou/uL (0.8-5.3); ABSOLUTE MONOCYTES 0.8 thou/uL (0.0-1.2); ABSOLUTE NEUTROPHILS 7.3 thou/uL (1.6-8.1); EOSINOPHILS 2.5 %; HEMATOCRIT 41.3 % (37.0-47.0); HEMOGLOBIN 13.3 gm/dL (12.0-15.0); LYMPHOCYTES 24.1 %; MCH 27.7 pg (26.0-34.0); MCHC 32.3 g/dL (28.0-37.0); MONOCYTES 7.2 %; MPV 9.2 fl. (7.2-11.1); NUCLEATED RBCS 0 /100WBC; PLATELET COUNT* 405 thou/uL (150-400); POLYS 65.2 %; RDW-CV 14.8 % (10.5-14.5); WBC 11.2 thou/uL (4.0-11.0)
[2020-12-12 11:20] LABS: CALCIUM 9.4 mg/dL (8.5-10.1)
[2020-12-12 11:25] LABS: APTT 25.7 Seconds (25.0-31.3); PROTIME 10.2 Seconds (9.20-11.50)
[2020-12-12 11:33] LABS: ALBUMIN 3.6 g/dL (3.4-5.0); CK-MB MASS 0.6 ng/mL (<0.5-3.6); MAGNESIUM 1.8 mg/dL (1.8-2.4); TOTAL BILIRUBIN 0.5 mg/dL (<0.1-1.0)
--- NOTE | 2020-12-12 14:02 | EKG ---
[place] [address] ELECTROCARDIOGRAM REPORT Name: MALATHI GERARDO Room: [place] [address] ADM IN [facility].#: [id number] Admission: 12/12/20 Attend Phys: Josie Hinton MD Discharge: Date of : 70 Date of Service: 12/12/20 [facility] Report #: [id number] THIS REPORT FOR: //name// [facility] ED Test Date: 2020-12-12 Test Time: 10:37:01 Pat Name: MALATHI GERARDO Department: Room: [facility] Gender: F Telesales Agent: RICHARD : 1970 Requested By: Arvind Salinas Order Number: [id number] MD: Jay Baldwin Measurements Intervals [place] Rate: 73 P: 26 [place]: 151 QRS: -12 QRSD: 91 T: 122 QT: 399 QTc: 440 Interpretive Statements Sinus rhythm Repol abnrm suggests ischemia, anterolateral Baseline wander in lead(s) V2 Compared to ECG 08/22/2019 04:36:33 Early repolarization now present Possible ischemia still present but ischemic changes have diminished Electronically Signed On 12-12-2020 14:02:30 POULTRY HATCHERY MAN by Jay Baldwin [email or web address] <ELECTRONICALLY SIGNED> By: Jay Baldwin MD, FACC 12/12/20 1402 1037 1037 Jay Baldwin MD, [facility] /EPI
[2020-12-12 14:18] VITALS: BP 171/82
[2020-12-12 14:26] LABS: CHOLESTEROL 230 mg/dL (<200); HDL CHOLESTEROL 38 mg/dL (>40); LDL CHOLESTEROL 153 mg/dL (<100); SERUM ASSESSMENT CLEAR; TC:HDL 6.1 Ratio (Not establshd); TRIGLYCERIDE 197 mg/dL (<150); VLDL 39 mg/dL (<40)
--- NOTE | 2020-12-12 15:50 | 2DMMODE ---
[place] [address] 2 D/M-MODE ECHOCARDIOGRAM Name: MALATHI GERARDO Room: [address] IN [facility]#: [id number] Admission: 12/12/20 Attend Phys: Josie Hinton MD Discharge: Date of : 70 Date of Service: 12/12/20 1549 Report #: [id number] THIS REPORT FOR: cc: [facility] - Clinic physician unknown [facility] - Clinic physician unknown Jay Baldwin MD [facility] ~ APPROVED REPORT Study performed: 12/12/2020 15:04:07 EXAM: Comprehensive 2D, Doppler, and color-flow Echocardiogram Patient Location: In-Patient Room #: [facility] Status: routine BSA: 2.10 HR: 58 bpm BP: 171/82 mmHg Rhythm: NSR Other Information Study Quality: Good Indications Acute VA 2D Dimensions IVSd: 13.09 (7-11mm) LVOT Diam: 19.06 (18-24mm) LVDd: 45.46 mm PWd: 11.47 (7-11mm) Ascending Ao: 29.88 (22-36mm) LVDs: 30.89 (25-40mm) Aortic Root: 29.84 mm Volumes Left Atrial Volume (Systole) LA ESV Index: 19.80 mL/m2 Aortic Valve AoV Peak Ollie.: 1.44 m/s AO Peak Gr.: 8.25 mmHg LVOT Max P.12 mmHg AO Mean Gr.: 4.28 mmHg LVOT Mean P.05 mmHg LVOT Max V: 1.01 m/s AO V2 VTI: 26.64 cm LVOT Mean V: 0.66 m/s BERNIE (VTI): 2.73 cm2 LVOT V1 VTI: 25.51 [place] [address] 2 D/M-MODE ECHOCARDIOGRAM Name: MALATHI GERARDO Room: [address] IN .R.#: [id number] Admission: 12/12/20 Attend Phys: Josie Hinton MD Discharge: Date of : 70 Date of Service: 12/12/20 1549 Report #: [id number] Mitral Valve MV Mean Gr.: 1.39 mmHg E/A Ratio: 0.65 MV Decel. Time: 406.66 ms MV E Max Ollie.: 0.67 m/s MV PHT: 117.93 ms MVA (PHT): 1.87 cm2 TDI E/Lateral E': 9.57 E/Medial E': 9.57 Medial E' Ollie.: 0.07 m/s Lateral E' Ollie.: 0.07 m/s Pulmonary Valve PV Peak Ollie.: 0.94 m/s PV Peak Gr.: 3.54 mmHg Left Ventricle The left ventricle is normal size. Regional wall motion abnormalities are noted with distal septal and anteroapical hypokinesis. There is normal left ventricular wall thickness. Left ventricular systolic function is mild to moderately decreased. LVEF is 40-45%. Grade I - abnormal relaxation pattern. Right Ventricle The right ventricle is normal size. The right ventricular systolic function is normal. Atria The left atrium size is normal. The right atrium size is normal. Aortic Valve Mild aortic valve sclerosis. No aortic regurgitation is present. There is no aortic valvular stenosis. Mitral Valve Mild mitral annular calcification. Trace mitral regurgitation. No evidence of mitral valve stenosis. Tricuspid Valve The tricuspid valve is normal in structure. Trace tricuspid regurgitation. Unable to assess PA pressure. Pulmonic Valve The pulmonary valve is normal in structure. There is no pulmonic [place] [address] 2 D/M-MODE ECHOCARDIOGRAM Name: MALATHI GERARDO Room: [address] IN [facility]#: [id number] Admission: 12/12/20 Attend Phys: Josie Hinton MD Discharge: Date of : 70 Date of Service: 12/12/20 1549 Report #: [id number] Great Vessels The aortic root is normal in size. IVC is normal in size and collapses >50% with inspiration. Pericardium There is no pericardial effusion. <Conclusion> The left ventricle is normal size. There is normal left ventricular wall thickness. Left ventricular systolic function is mild to moderately decreased. LVEF is 40-45%. Grade I - abnormal relaxation pattern. The right ventricle is normal size. The left atrium size is normal. Mild aortic valve sclerosis. No aortic regurgitation is present. There is no aortic valvular stenosis. Mild mitral annular calcification. Trace mitral regurgitation. The tricuspid valve is normal in structure. IVC is normal in size and collapses >50% with inspiration. There is no pericardial effusion. Regional wall motion abnormalities are noted with distal septal and anteroapical hypokinesis. <ELECTRONICALLY SIGNED> By: Jay Baldwin MD, FACC 12/12/20 1549 1549 1549 Jay Baldwin MD, FACC /INF
[2020-12-12 21:04] VITALS: BP 112/67
[2020-12-13] VITALS (14 sets, daily range): BP systolic 98–173; BP diastolic 51–111
[2020-12-13 04:06] LABS: GLYCOHEMOGLOBIN (HGB A1C) 7.5 % (4.8-5.6)
[2020-12-13 04:54] LABS: HEMATOCRIT 38.4 % (37.0-47.0); HEMOGLOBIN 12.6 gm/dL (12.0-15.0); MCH 27.8 pg (26.0-34.0); MCV 84.4 fL (80.0-100.0); MPV 8.9 fl. (7.2-11.1); RBC 4.55 mil/uL (4.20-5.00); RDW-CV 14.7 % (10.5-14.5); WBC 11.1 thou/uL (4.0-11.0)
[2020-12-13 05:03] LABS: CALCIUM 9.4 mg/dL (8.5-10.1); CREATININE 0.9 mg/dL (0.6-1.3); POTASSIUM 4.1 mmol/L (3.5-5.1)
--- NOTE | 2020-12-13 11:06 | EKG ---
[place] [address] ELECTROCARDIOGRAM REPORT Name: MALATHI GERARDO Room: [address] ADM IN .R.#: [id number] Admission: 12/12/20 Attend Phys: Josie Hinton MD Discharge: Date of : 70 Date of Service: 12/13/20 1017 Report #: [id number] THIS REPORT FOR: //name// [facility] Test Date: 2020-12-13 Test Time: 10:17:00 Pat Name: MALATHI GERARDO Department: Room: [address] Gender: F Dance Entertainer: : 1970 Requested By: Brandon Vilchis Order Number: [id number] Reading MD: Brandon Vilchis Measurements Intervals [place] Rate: 53 P: 10 [place]: 143 QRS: -32 QRSD: 90 T: 33 QT: 501 QTc: 471 Interpretive Statements Sinus rhythm Diffuse T wave inversion, possible ischemia Baseline wander in lead(s) V1,V2,V3,V4,V5 Compared to ECG 12/12/2020 10:37:01 Early repolarization no longer present Possible ischemia still present Electronically Signed On 12-13-2020 11:06:22 COMPLIANCE ADMINISTRATOR by Brandon Vilchis [email or web address] <ELECTRONICALLY SIGNED> By: Brandon Vilchis MD, FAC 12/13/20 1106 1017 1017 Brandon Vilchis MD, [facility] /EPI
--- NOTE | 2020-12-13 11:06 | EKG ---
[place] [address] ELECTROCARDIOGRAM REPORT Name: MALATHI GERARDO Room: [address] ADM IN .R.#: [id number] Admission: 12/12/20 Attend Phys: Josie Hinton MD Discharge: Date of : 70 Date of Service: 12/13/20 1031 Report #: [id number] THIS REPORT FOR: //name// [facility] Test Date: 2020-12-13 Test Time: 10:31:43 Pat Name: MALATHI GERARDO Department: Room: [address] Gender: F Radio Despatcher: : 1970 Requested By: Brandon Vilchis Order Number: [id number] Reading MD: Brandon Vilchis Measurements Intervals [place] Rate: 54 P: 19 [place]: 143 QRS: -20 QRSD: 92 T: 97 QT: 508 QTc: 482 Interpretive Statements Sinus rhythm LVH by voltage Abnrm T, consider ischemia, anterolateral lds Baseline wander in lead(s) I,II,aVR,aVF,V3,V4,V5 Compared to ECG 12/12/2020 10:37:01 Left ventricular hypertrophy now present Early repolarization no longer present Possible ischemia still present Electronically Signed On 12-13-2020 11:06:30 EXPLOSIVES OPERATOR by Brandon Vilchis [email or web address] <ELECTRONICALLY SIGNED> By: Brandon Vilchis MD, FACC 12/13/20 1106 1031 1031 Brandon Vilchis MD, [facility] /EPI
--- NOTE | 2020-12-13 13:46 | CARD ---
[address] [address] CARDIAC CATH REPORT Name: MALATHI GERARDO Room: [address] IN .R.#: [id number] Admission: 12/12/20 Attend Phys: Josie Hinton MD Discharge: Date of : 70 Report #: [id number] THIS REPORT FOR: cc: [facility] - Clinic physician unknown [facility] - Clinic physician unknown ~ Jay Baldwin MD [facility] APPROVED REPORT Study performed: 12/13/2020 08:34:52 Patient Details Patient Status: In-Patient Room #: The patient is a 50 year-old female Event Personnel Brandon Vilchis Block Out Machine Operator, Beverly Lambert RN Director Business Management, Octavio Aguirre HUMAN RESOURCES ANALYST Monitor, Ron Rodriguez RTR Scrub; Jay Baldwin outreach clinician Procedures Performed Art Access - R femoral artery* Left Heart Cath w/or w/o Coronaries [id number] [facility] [address] w/wo Plasty Single LAD [id number] Hemostasis w/ Angioseal Indication Non-STEMI Risk Factors Obesity, Hypercholesterolemia, Hypertension Previous Procedures/Diagnoses Previous PCI, Previous [place] Admission/Lab Medications/Medications given during procedure Angiomax bolus and infusion Procedure Narrative The patient was brought electively to the Cardiac Catheterization Laboratory and was prepped and draped in a sterile manner. The right femoral was infiltrated with 2% Lidocaine subcutaneous anesthesia. A 6fr sheath was inserted into the right femoral artery. Coronary angiography was performed using coronary diagnostic catheters. The right coronary system was accessed and visualized with a Diagnostic JR4 catheter. The left coronary system was [place] [address] CARDIAC CATH REPORT Name: MALATHI GERARDO Room: [address] IN [facility]#: [id number] Admission: 12/12/20 Attend Phys: Josie Hinton MD Discharge: Date of : 70 Report #: [id number] with a Diagnostic JL4 catheter. The left ventricle was accessed and visualized with a Pig Tail catheter. Left ventricular/Aortic Valve gradient assessed via catheter pullback. Pre-demployment femoral angiogram was performed . The patient tolerated the procedure well and there were no complications associated with the procedure. There was no hematoma. Intraoperative Conscious Sedation Sedation start time: 848 Case end Time: 937 Fentanyl 25 mcg Versed 1 mg Fluoro Time: 12.9 minutes Dose: DAP 704147 cGycm2 2948 mGy Contrast Type and Amount: Visipaque 220 ml Diagnostic Cath Left Main 0% narrowing LAD 75% proximal LAD stenosis with 95% diffuse mid LAD in-stent restenosis with CARL II flow to the distal vessel; there was 75% ostial first diagonal narrowing Circumflex Nondominant vessel with 50% mid vessel narrowing Right Coronary Moderate size dominant vessel with 95% stenosis encircling the acute margin; there was 40% proximal narrowing Left Ventriculography Left Ventriculography was not performed. Hemodynamics The aortic pressure is 105/53 mmHg with a mean of 73 mmHg. The left ventricular pressure is 128/6 mmHg with a mean of mmHg. The left ventricular end diastolic pressure is 12 mmHg. There was no gradient across the aortic valve upon pullback. PCI Technique Lesion Anticoagulation was achieved with Angiomax. Patient was preloaded with Angiomax IV 16 ml. Percutaneous coronary intervention was performed on the Mid left anterior descending coronary artery. The lesion stenosis prior to intervention was 95% with CRAL 2 flow. A 6F XB LAD 3.5 Guide Catheter was used to engage the left ostium. A BMW 190cm Interventional Guidewire was used to cross the lesion. BALLOON DILATION A Balloon catheter Trek RX 2.5 X 12 was inserted and inflated up to 10.00atm for 14seconds. Additional Inflation: 12.00atm for 15seconds. [place] [address] CARDIAC CATH REPORT Name: MALATHI GERARDO Room: [address]#: [id number] Admission: 12/12/20 Attend Phys: Josie Hinton MD Discharge: Date of : 70 Report #: [id number] STENT DEPLOYMENT A drug-eluting stent Marco RX Stent 2.5X38mm,2.5x12 marco was inserted and inflated up to 10.00atm for 8seconds. Additional Inflation: 12.00atm for 10seconds. Additional Inflation: 14.00atm for 7seconds. POST STENT DEPLOYMENT BALLOON DILATION A Balloon catheter 2.5 x 12 semicompliant balloon was inserted and inflated up to 12 - 15atm for 10seconds. Additional Inflation: 12.00atm for 12seconds. Final angiography reveals 0 % stenosis with CARL 3 flow. COMMENTS The PCI was technically complex by virtue of the bifurcation nature of the disease requiring treatment of both the parent LAD and prominent first diagonal branch. PCI Technique Lesion 2 Percutaneous Coronary Intervention was performed on the Proximal LAD. The lesion stenosis prior to intervention was 75% with CARL 3 flow. Stent Deployment A drug-eluting stent Trek RX 2.5 X 12 was inserted and inflated up to 15atm for 12seconds. Final angiography reveals 0 % stenosis with CARL 3 flow. PCI Technique Lesion 3 Percutaneous Coronary Intervention was performed on the First diagonal branch. The lesion stenosis prior to intervention was 75% with CARL 3 flow. Balloon Dilation A Balloon catheter Mini Trek RX 2.0 X 8 was inserted and inflated up to 12atm for 10seconds. Final angiography reveals 20 % stenosis with CARL 3 flow. Conclusion 1. Significant multivessel coronary [place] [address] CARDIAC CATH REPORT Name: MALATHI GERARDO Room: [address] IN M.R.#: [id number] Admission: 12/12/20 Attend Phys: Josie Hinton MD Discharge: Date of : 70 Report #: [id number] the following: A 75% proximal LAD stenosis followed by 95% tubular mid LAD in-stent restenosis with CARL II flow to the distal vessel; there was 75% ostial first diagonal narrowing B 50% narrowing of the midportion of the nondominant circumflex C modest size dominant right coronary with 95% stenosis encircling the acute margin ; there was 40% proximal narrowing 2. Normal left-sided hemodynamic study 3. Successful PCI with deployment of drug-eluting stents at the sites of 75% proximal and 95% tubular mid LAD stenosis with 0% residual narrowing at both sites following stent deployment and CARL-3 flow to the distal vessel 4. Successful PTCA at the ostium of the first diagonal with 20% residual narrowing and CARL III flow to the distal diagonal Recommendations Aggressive Medical Therapy Medications Administered Aspirin (any) Prasugrel Diagnostic Cath Approved by: Brandon Vilchis MD Date/Time: 12/13/2020 13:40:52 <ELECTRONICALLY SIGNED> By: Jay Baldwin MD, FACC 12/13/20 1345 1345 1345Jay Baldwin MD, FAC /INF
--- NOTE | 2020-12-13 16:19 | CARD ---
[address] [address] CARDIAC CATH REPORT Name: MALATHI GERARDO Room: 210 ADM IN [facility]#: [id number] Admission: 12/12/20 Attend Phys: Josie Hinton MD Discharge: Date of : 70 Report #: [id number] THIS REPORT FOR: cc: [facility] - Clinic physician unknown [facility] - Clinic physician unknown ~ Jay Baldwin MD [facility] APPROVED REPORT Study performed: 12/13/2020 11:13:57 Patient Details Patient Status: In-Patient Room #: 210 The patient is a 50 year-old female Event Personnel Ron Rodriguez RTR Monitor, Eve Neville RTR Scrub, Beverly Lambert RN RN, Brandon Vilchis Cable Assembler And Swager; Jay Baldwin sane nurse Procedures Performed Coronary Angiography Only [id number] [facility] PTCA Single Vessel LAD [id number] [place] Hemostasis w/ Angioseal Indication Abnormal ECG, Chest pain, Suspicion of acute stent thrombosis status post PCI Risk Factors Obesity, Hypercholesterolemia, Hypertension Previous Procedures/Diagnoses Previous PCI, Previous [place] Admission/Lab Medications/Medications given during procedure Fentanyl IV 25 mcg, Midazolam (Versed) IV 1 mg, Lidocaine Subcut 20 ml, Angiomax IV 8 ml, Angiomax IV 37 ml per hr, Aggrastat Unknown 10.9 ml, Aggrastat IV 19 ml per hr Procedure Narrative The patient was brought urgently to the Cardiac Catheterization Laboratory and was prepped and draped in a sterile manner. The right femoral was infiltrated with 2% Lidocaine subcutaneous anesthesia. A Edison 6 FR sheath was inserted into the right femoral artery. Coronary angiography was performed [place] [address] CARDIAC CATH REPORT Name: MALATHI GERARDO Room: [address] IN [facility]#: [id number] Admission: 12/12/20 Attend Phys: Josie Hinton MD Discharge: Date of : 70 Report #: [id number] catheters. The left coronary system was accessed and visualized with a Diagnostic catheter. The patient tolerated the procedure well and there were no complications associated with the procedure. There was no hematoma. Intraoperative Conscious Sedation Sedation start time: 1120 Case end Time: 1146 Fentanyl 25 mcg Versed 1 mg Fluoro Time: 7.3 minutes Dose: DAP 02702 cGycm2 1257.52 mGy Contrast Type and Amount: Visipaque 110 ml Diagnostic Cath Left Main 0% narrowing LAD 70% narrowing within the proximal portion of the recently stented proximalmid LAD segment with local thrombus noted in the proximal and mid portions of the stented region Circumflex 50% mid vessel narrowing Hemodynamics The aortic pressure is 121/64 mmHg with a mean of 85 mmHg. PCI Technique Lesion Anticoagulation was achieved with Angiomax. Percutaneous coronary intervention was performed on the mid left anterior descending artery segment. The lesion stenosis prior to intervention was 70% with CARL 3 flow. A 6F XB LAD 3.5 Guide Catheter was used to engage the Left ostium. A IG: BMW 190cm Interventional Guidewire was used to cross the lesion. BALLOON DILATION A Balloon catheter Trek RX 2.5 X 12 was inserted and inflated up to 16.00atm for 10seconds. Additional Inflation: 15.00atm for 7seconds. Additional Inflation: 15.00atm for 5seconds. Additional Inflation: 15.00 chelsey for 8 seconds. Additional Inflation: 17.00 chelsey for 8 seconds. Additional Inflation: 17.00 chelsey for 8 seconds Final angiography reveals 0 % stenosis with CARL 3 flow. COMMENTS There was local thrombus noted in the proximal and mid portions of the recently stented proximalmid LAD segment; there was CARL-3 [place] [address] CARDIAC CATH REPORT Name: MALATHI GERARDO Room: [address] IN [facility]#: [id number] Admission: 12/12/20 Attend Phys: Josie Hinton MD Discharge: Date of : 70 Report #: [id number] noted. Patient underwent angioplasty at the sites of stent thrombus location after achieving appropriate anticoagulation with Angiomax. Patient received a bolus and infusion of Aggrastat which was continued 6 hours post procedure. This occurred as a manifestation of early stent thrombosis after PCI to the proximalmid LAD earlier in the same day. Conclusion 1. Stent thrombosis early post PCI with thrombus located in the proximal and midportions of the stented LAD segment 2. PTCA of the proximal and mid LAD after achieving satisfactory level of anticoagulation 3. Aggrastat bolus and infusion given with the infusion continued 6 hours post procedure. Recommendations Cardiac Risk Reduction Program Aggressive Medical Therapy Medications Administered Aggrastat bolus and infusion Diagnostic Cath Approved by: Brandon Vilchis MD Date/Time: 12/13/2020 16:17:52 <ELECTRONICALLY SIGNED> By: Jay Baldwin MD, [facility] 12/13/20 1619 1619 1619Jay Baldwin MD, FACC /INF
--- NOTE | 2020-12-13 17:47 | EKG ---
[place] [address] ELECTROCARDIOGRAM REPORT Name: MALATHI GERARDO Room: [address] ADM IN M.R.#: [id number] Admission: 12/12/20 Attend Phys: Josie Hinton MD Discharge: Date of : 70 Date of Service: 12/13/20 1641 Report #: [id number] THIS REPORT FOR: //name// [facility] Test Date: 2020-12-13 Test Time: 16:41:51 Pat Name: MALATHI GERARDO Department: Room: [address] Gender: F Project Development Engineer: YASMINE : 1970 Requested By: Brandon Vilchis Order Number: [id number] Reading MD: Brandon Vilchis Measurements Intervals [place] Rate: 59 P: 16 W[place]: 149 QRS: -14 QRSD: 91 T: 130 QT: 504 QTc: 500 Interpretive Statements Sinus rhythm Anteroseptal infarct, age indeterminate Lateral leads are also involved Diffuse T wave inversion, consider ischemia Compared to ECG 12/13/2020 10:31:43 Myocardial infarct finding now present Left ventricular hypertrophy no longer present Possible ischemia no longer present Electronically Signed On 12-13-2020 17:47:13 SUPERVISOR ERECTION SHOP by Brandon Vilchis [email or web address] <ELECTRONICALLY SIGNED> By: Brandon Vilchis MD, [facility] 12/13/20 1747 164 164 Brandon Vilchis MD, [facility] /EPI
[2020-12-14 04:00] VITALS: BP 107/55
[2020-12-14 04:55] LABS: HEMATOCRIT 35.8 % (37.0-47.0); MCH 28.3 pg (26.0-34.0); MCHC 33.6 g/dL (28.0-37.0); MCV 84.2 fL (80.0-100.0); MPV 8.6 fl. (7.2-11.1); RBC 4.25 mil/uL (4.20-5.00); RDW-CV 14.5 % (10.5-14.5); WBC 10.5 thou/uL (4.0-11.0)
[2020-12-14 05:13] LABS: CALCIUM 8.9 mg/dL (8.5-10.1); CREATININE 0.7 mg/dL (0.6-1.3); POTASSIUM 3.8 mmol/L (3.5-5.1); TOTAL BILIRUBIN 0.4 mg/dL (<0.1-1.0); TOTAL PROTEIN 6.8 g/dL (6.4-8.2)
[2020-12-14 05:15] LABS: CALCIUM 8.9 mg/dL (8.5-10.1); CREATININE 0.8 mg/dL (0.6-1.3); POTASSIUM 3.7 mmol/L (3.5-5.1)
[2020-12-14 08:00] VITALS: BP 104/47
[2020-12-14 12:03] VITALS: BP 97/49
--- NOTE | 2020-12-14 15:33 | EKG ---
[place] [address] ELECTROCARDIOGRAM REPORT Name: MALATHI GERARDO Room: [address] ADM IN M.R.#: [id number] Admission: 12/12/20 Attend Phys: Josie Hinton MD Discharge: Date of : 70 Date of Service: 12/14/20 0628 Report #: [id number] THIS REPORT FOR: //name// [facility] Test Date: 2020-12-14 Test Time: 06:28:38 Pat Name: MALATHI GERARDO Department: Room: [address] Gender: F Family Educator: TR : 1970 Requested By: Brandon Vilchis Order Number: [id number] Reading MD: Jay Baldwin Measurements Intervals [place] Rate: 71 P: 32 CO: 148 QRS: 2 QRSD: 91 T: 125 QT: 531 QTc: 578 Interpretive Statements Sinus rhythm Low voltage, precordial leads Repol abnrm suggests ischemia, lateral leads or electrolyte imbalance Prolonged QT interval Compared to ECG 12/13/2020 16:41:51 Low QRS voltage now present Early repolarization now present Prolonged QT interval persists T-wave abnormality persists Possible ischemia still present Electronically Signed On 12-14-2020 15:33:32 KNIT GOODS CUTTER HAND by Jay Baldwin [email or web address] <ELECTRONICALLY SIGNED> By: Jay Baldwin MD, [facility] 12/14/20 1533 7 7 Jay Baldwin MD, [facility] /EPI
[2020-12-14 16:40] VITALS: BP 97/47
[2020-12-14 20:04] VITALS: BP 117/64
[2020-12-15] VITALS (16 sets, daily range): BP systolic 96–138; BP diastolic 53–73
[2020-12-15 04:41] LABS: HEMATOCRIT 34.9 % (37.0-47.0); HEMOGLOBIN 11.5 gm/dL (12.0-15.0); MCH 28.3 pg (26.0-34.0); MCV 85.9 fL (80.0-100.0); MPV 8.7 fl. (7.2-11.1); RBC 4.06 mil/uL (4.20-5.00); RDW-CV 14.8 % (10.5-14.5); WBC 9.9 thou/uL (4.0-11.0)
[2020-12-15 05:14] LABS: CREATININE 0.8 mg/dL (0.6-1.3); POTASSIUM 3.7 mmol/L (3.5-5.1)
[2020-12-16 01:05] VITALS: BP 104/40
[2020-12-16 04:48] VITALS: BP 122/62
[2020-12-16 07:30] VITALS: BP 107/60
[2020-12-16] MEDS ORDERED: METOPROLOL SUCC25 M1 PO (08:46)
[2020-12-16] MEDS ORDERED: NITROGLYCERIN0.4 MG SUBLING (08:46)
[2020-12-16] MEDS ORDERED: COZAAR 50 MG TA50 M1 PO (08:46)
[2020-12-16] MEDS ORDERED: EFFIENT10 MG PO (08:46)
[2020-12-16] MEDS ORDERED: ASPIR 8181 MG PO (08:46)
[2020-12-16] MEDS ORDERED: LIPITOR 40 MG T40 M1 PO (08:46)
[2020-12-16] MEDS ORDERED: ZETIA10 MG PO (08:46)
--- NOTE | 2020-12-16 09:36 | EKG ---
[place] [address] ELECTROCARDIOGRAM REPORT Name: MALATHI GERARDO Room: [address] ADM IN M.R.#: [id number] Admission: 12/12/20 Attend Phys: Josie Hinton MD Discharge: Date of : 70 Date of Service: 12/16/20611 Report #: [id number] THIS REPORT FOR: //name// [facility] Test Date: 2020-12-16 Test Time: 06:12:30 Pat Name: MALATHI GERARDO Department: Room: [address] Gender: F Barrel Polisher: Yimi Suero : 1970 Requested By: Josie Hinton Order Number: [id number] Reading MD: Jay Baldwin Measurements Intervals [place] Rate: 58 P: 159 SC: 162 QRS: 184 QRSD: 76 T: 55 QT: 463 QTc: 455 Interpretive Statements Right and left arm electrode reversal, interpretation assumes no reversal Sinus or ectopic atrial rhythm Inferolateral infarct, old Compared to ECG 12/14/2020 06:28:38 Right arm left arm lead reversal is noted Electronically Signed On 12-16-2020 9:35:54 VP OF GLOBAL MARKETING by Jay Baldwin [email or web address] <ELECTRONICALLY SIGNED> By: Jay Baldwin MD, [facility] 12/16/20 0935 1 1 Jay Baldwin MD, [facility] /EPI
[2020-12-16 12:20] VITALS: BP 107/60
--- NOTE | 2020-12-16 15:01 | CARD ---
[address] [address] CARDIAC CATH REPORT Name: MALATHI GERARDO Room: [address] IN .R.#: [id number] Admission: 12/12/20 Attend Phys: Josie Hinton MD Discharge: 12/16/20 Date of : 70 Report #: [id number] THIS REPORT FOR: cc: [facility] - Clinic physician unknown [facility] - Clinic physician unknown ~ Jay Baldwin MD [facility] APPROVED REPORT Study performed: 12/15/2020 11:11:22 Patient Details Patient Status: In-Patient Room #: The patient is a 50 year-old female Event Personnel Jay Baldwin Industrial Relations Specialist, Brandon Vilchis Custodian Athletic Equipment, Beverly Lambert RN RN, Octavio Aguirre Scrub, Eve Neville RTR Monitor Dr. Vilchis and Dr. Baldwin Procedures Performed Art Access - R femoral artery Left Heart Cath w/or w/o Coronaries ROSALIE Place w/wo Plasty Single RCA Hemostasis w/ Angioseal Indication Non-STEMI Risk Factors Hypercholesterolemia, Hypertension Previous Procedures/Diagnoses Previous PCI Admission/Lab Medications/Medications given during procedure Lidocaine Subcut 14 ml, Oxygen Nasal cannula 2 l per min, 0.9% Sodium Chloride IV 75 ml per hr, Midazolam (Versed) IV 1 mg, Fentanyl IV 25 mcg, Nitroglycerin IC 200 mcg, Angiomax IV 16 ml, Angiomax Drip IV 36.4 ml per hr, Nitroglycerin IC 300 mcg, Effient PO 30 mg Procedure Narrative The patient was brought urgently to the Cardiac Catheterization Laboratory and was prepped and draped in a sterile manner. The right femoral was infiltrated with 2% [place] [address] CARDIAC CATH REPORT Name: MALATHI GERARDO Room: [address]#: [id number] Admission: 12/12/20 Attend Phys: Josie Hinton MD Discharge: 12/16/20 Date of : 70 Report #: [id number] [place] 6 FR sheath was inserted into the right femoral artery. Coronary angiography was performed using coronary diagnostic catheters. The right coronary system was accessed and visualized with a Diagnostic 6 Fr JR 4 catheter. The left coronary system was accessed and visualized with a Diagnostic 6 Fr JL 4 catheter. The left ventricle was accessed and visualized with a Diagnostic 6 Fr Pigtail catheter. Left ventricular/Aortic Valve gradient assessed via catheter pullback. Pre-demployment femoral angiogram was performed . Closure device was deployed with a Fr Angioseal STS 6Fr. The patient tolerated the procedure well and there were no complications associated with the procedure. There was no hematoma. Intraoperative Conscious Sedation Sedation start time: 11:23 Case end Time: 12:14 Fentanyl 25 mcg Versed 1 mg Fluoro Time: 13.3 minutes Dose: DAP 703561 cGycm2 2003 mGy Contrast Type and Amount: Visipaque 200 ml Diagnostic Cath Left Main 0% narrowing LAD Widely patent proximalmid LAD stent with 40% ostial first diagonal narrowing Circumflex 50% narrowing of the midportion of the nondominant circumflex Right Coronary 50% ostial right coronary with 40% mid vessel narrowing and 90% stenosis surrounding the acute margin Hemodynamics The aortic pressure is 110/57 mmHg with a mean of 75 mmHg. The left ventricular pressure is 105/-1 mmHg with a mean of mmHg. The left ventricular end diastolic pressure is 5 mmHg. There was no gradient across the aortic valve upon pullback. PCI Technique Lesion Anticoagulation was achieved with Angiomax Drip. Patient was preloaded with Angiomax IV 16 ml. Percutaneous coronary intervention was performed on the mid right coronary artery. The lesion stenosis prior to intervention was 90% with CARL 3 flow. A 6Fr JR 4.0 SH Guide Catheter was used to engage the right ostium. A IG: BMW 190cm Interventional Guidewire was [place] [address] CARDIAC CATH REPORT Name: MALATHI GERARDO Room: [address] IN ..#: [id number] Admission: 12/12/20 Attend Phys: Josie Hinton MD Discharge: 12/16/20 Date of : 70 Report #: [id number] BALLOON DILATION A Balloon catheter Mini Trek RX 1.5 X 12 was inserted and inflated up to 8.00atm for 12seconds. Additional Inflation: 10.00atm for 2seconds. A balloon catheter Mini Trek RX 2.0 x 12 was inserted and inflated up to 8 ELLYN for 7 seconds and 8 ELLYN for 4 seconds. STENT DEPLOYMENT A drug-eluting stent [place] RX Stent 2.0X18mm was inserted and inflated up to 10.00atm for 6seconds. Additional Inflation: 10.00atm for 3seconds. A drug-eluting stent Marco RX Stent 2.0 x 8 was inserted and inflated up to 12 ELLYN for 9 seconds and 16 ELLYN for 8 seconds. POST STENT DEPLOYMENT BALLOON DILATION A Balloon catheter NC [place]up[place] 2.0 X 8mm was inserted and inflated up to 15.00atm for 12seconds. Additional Inflation: 20.00atm for 9seconds. A balloon catheter NC Euphora 2.25 x 12 was inserted and inflated up to 14 ELLYN for 9 seconds, 15 ELLYN for 14 seconds, and 22 ELLYN for 8 seconds. Final angiography reveals 0 % stenosis with CARL 3 flow. Conclusion Significant coronary artery disease characterized by the following: A widely patent proximalmid LAD stent with 40% ostial first diagonal narrowing B 50% narrowing the midportion of the nondominant circumflex C 50% ostial with 40% mid and 90% stenosis of the right coronary artery surrounding the acute margin 2. Normal left-sided hemodynamic study 3 successful PCI with deployment of sequential drug-eluting stents at the site of 90% stenosis of the right coronary artery as it surrounds the acute margin with 0% residual narrowing and CARL-3 flow to the distal vessel Recommendations Cardiac Risk Reduction Program Aggressive Medical Therapy [address] [place] [address] CARDIAC CATH REPORT Name: MALATHI GERARDO Room: [address] IN M.R.#: [id number] Admission: 12/12/20 Attend Phys: Josie Hinton MD Discharge: 12/16/20 Date of : 70 Report #: [id number] Diagnostic Cath Approved by: Brandon Vilchis MD Date/Time: 12/16/2020 15:00:37 <ELECTRONICALLY SIGNED> By: Jay Baldwin MD, FACC 12/16/20 1501 150 1501Jay Baldwin MD, FACC /INF
== END 2020-12-16 14:21 | disposition home or self-care (01) | DRG 246 ==
LOC: M.ERS 10:33 → M.TBA-ER 12:20 → M.2W 14:47
PROVIDERS: Emergency Medicine; Internal Medicine Cardiovascular Disease; Registered Nurse; ADMIT Family Medicine; ATTEND Family Medicine
PROC: 027136Z Dilation of Coronary Artery, Two Arteries with Three Drug-eluting Intraluminal Devices, Percutaneous Approach (ICD-10-PCS; principal; 2020-12-13)
PROC: 4A023N7 Measurement of Cardiac Sampling and Pressure, Left Heart, Percutaneous Approach (ICD-10-PCS; principal; 2020-12-13)
PROC: B211YZZ Fluoroscopy of Multiple Coronary Arteries using Other Contrast (ICD-10-PCS; principal; 2020-12-13)
PROC: 02703ZZ Dilation of Coronary Artery, One Artery, Percutaneous Approach (ICD-10-PCS; principal; 2020-12-13)
PROC: 027034Z Dilation of Coronary Artery, One Artery with Drug-eluting Intraluminal Device, Percutaneous Approach (ICD-10-PCS; 2020-12-15)
PROC: B211YZZ Fluoroscopy of Multiple Coronary Arteries using Other Contrast (ICD-10-PCS; 2020-12-15)
PROC: 4A023N7 Measurement of Cardiac Sampling and Pressure, Left Heart, Percutaneous Approach (ICD-10-PCS; 2020-12-15)
DX: I21.4 Non-ST elevation (NSTEMI) myocardial infarction (principal); E87.1 Hypo-osmolality and hyponatremia; I10 Essential (primary) hypertension; E78.5 Hyperlipidemia, unspecified; I25.10 Atherosclerotic heart disease of native coronary artery without angina pectoris; E11.65 Type 2 diabetes mellitus with hyperglycemia; I25.5 Ischemic cardiomyopathy; E66.9 Obesity, unspecified; Z20.822 Contact with and (suspected) exposure to COVID-19; Z68.39 Body mass index [BMI] 39.0-39.9, adult; Z95.5 Presence of coronary angioplasty implant and graft; Z88.0 Allergy status to penicillin; Z79.899 Other long term (current) drug therapy